=== PATIENT | female | born 1995 | race Caucasian/White ===

== ENCOUNTER 2019-12-05 03:05 | Inpatient (IN) | payer MEDICAID, SELFPAY ==
[2019-12-05] VITALS (7 sets, daily range): BP systolic 108–135; BP diastolic 68–83; PULSE 73–93; RESP 16–24; TEMP 36.6–37; O2SAT 96–97; BMI 37.8
[2019-12-05 03:36] LABS: Basophils # 0.1 10^3/uL (0.0-0.1); Basophils % 0.4 %; Eosinophils # 0.1 10^3/uL (0.0-0.8); Eosinophils % 0.7 %; Hematocrit 31.1 % (37.0-47.0); Hemoglobin 9.3 g/dL (11.5-15.3); Lymphocytes # 2.9 10^3/uL (0.8-4.8); Lymphocytes % 19.6 %; Mean Corpuscular HGB Conc 29.9 g/dL (30.0-36.0); Mean Corpuscular Hemoglobin 21.9 pg (28.0-34.0); Mean Corpuscular Volume 73.3 fL (81-99); Mean Platelet Volume 10.1 fL (7.4-10.4); Monocytes # 1.1 10^3/uL (0.2-0.9); Monocytes % 7.8 %; Neutrophils # 10.4 10^3/uL (1.8-7.7); Neutrophils % 70.7 %; Nucleated Red Blood Cells # 0.1 /100WBC; Nucleated Red Blood Cells % 0.6 %; Platelet Count 488 10^3/cmm (130-400); Red Blood Count 4.24 10^6/uL (4.1-5.3); Red Cell Distribution Width 16.4 % (12.1-15.1); White Blood Count 14.7 10^3/uL (4.0-10.0)
[2019-12-05 03:45] LABS: Amphetamines Screen Urine Negative (Negative); Barbiturates Screen Urine Negative (Negative); Benzodiazepines Screen Urine Negative (Negative); Cocaine Screen Urine Negative (Negative); Opiate Screen Urine Negative (Negative); PCP Screen Urine Negative (Negative); THC Screen Urine Positive (Negative)
--- NOTE | 2019-12-05 04:14 | PM.HP ---
Providers/Chief Complaint Admitting Physician: Fenrando Barksdale MD Primary Care Provider: Ginger Hdez Chief Complaint: LABOR History of Present Illness Ginger Deal is a 24 year old female with 2 previous successful vaginal deliveries and 9 or 10 miscarriages per patient report. Reviewing old records, there is some discrepancy about how many miscarriages she has had. She has apparently had her care in [place] though she reported that she had Dr. Thorne as her primary care provider earlier in her when she arrived at our hospital for some concern she had during this . Otherwise, she describes a relatively unremarkable . Based on old records, it looks like she started receiving care in [facility] September 13. Her labs were remarkable for having O- blood. Her 3-hour glucose screen was negative. 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 She has no active lesions. She states that she does have hypothyroidism sometimes, but did not have any problems during this . The patient began having contractions a few hours prior to delivery. Her membranes were intact upon arrival at the hospital. She was found to be 8 cm dilated and 100% effaced upon arrival at the hospital. Group B strep negative. Review of Systems General: Reports: 10 or more systems reviewed and unremarkable except in HPI and below GI: Reports: heartburn/indigestion Musc: Reports: back pain Skin/Breast: Reports: other (Mild breast pain consistent with ) Medications/Allergies Home Medications Medication Instructions Recorded Confirmed Last Taken Type No Known Home Medications 12/05/19 12/05/19 Unknown History Allergies Allergy/AdvReac Type Severity Reaction Status Date / Time No Known Allergies Allergy Verified 12/05/19 04:27 PFSH Acute PFSH: Statuses (acute, chronic, etc) shown below reflect problem list status as previously entered and may not be historically accurate Social History (Updated 12/05/19 @ 04:40 by Fernando Barksdale MD) Smoking and tobacco status: current every day smoker Alcohol intake: former Substance/Drug Use: former Date of last use: States that she accidentally had a brownie with marijuana in it a month ago Household members: spouse and children Physical Exam Const: COMMON NORMALS: no apparent distress, oriented x3 and well nourished GENERAL APPEARANCE: cooperative HENMT: COMMON NORMALS: normocephalic and moist oral mucous membranes Lymph: LYMPHATIC: no lymphadenopathy noted Chest: COMMONS NORMALS: inspection of chest normal CHEST: Yes symmetrical chest wall rise Resp: COMMON NORMALS: normal respiratory effort and clear to auscultation bilaterally Cardio: COMMON NORMALS: regular rate, regular rhythm and no murmurs GI: COMMON NORMALS: normal to inspection, nondistended, normoactive bowel sounds Extremity: COMMON NORMALS: normal to inspection and no pedal edema Neuro: COMMON NORMALS: moves all extremities Skin: GENERAL SKIN EXAM: no rashes or lesions noted A&P Assessment and plan (1) 39 weeks gestation of : Status: Acute Code(s): Z3A.39 - 39 weeks gestation of (2) Spontaneous vaginal delivery: Status: Acute Code(s): O80 - Encounter for full-term uncomplicated delivery Attestations Medical Necessity Statement*: I anticipate routine care. She should be discharged tomorrow morning if all goes well. 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
[2019-12-05] MEDS: HYDROcodone-acetaminophen 5-325 mg Tablet PO ×4 (04:35→18:40)
[2019-12-05] MEDS: dextrose 5%-lactated ringers 1,000 ML 125 ML IV (04:37)
[2019-12-05] MEDS: oxytocin 30 UNIT/500 ML BAG 600 UNIT IV (04:38)
--- NOTE | 2019-12-05 04:43 | PM.DELIVERY ---
 Delivery Note: Date of delivery: 12/05/19 Pre-Delivery Course: The patient presented to the hospital at 8 cm dilated in active labor. The nurses contacted me has the next person on the obstetric on-call list. Her membranes ruptured shortly thereafter. They obtained her records from [place]. I arrived shortly after they contacted me. I checked her and found her to be a 4 bag which broke during my check. She was found to be complete. She began pushing spontaneously. Delivery: DELIVERY: The patient progressed to complete without difficulty. She delivered a female with a weight of 9 pounds 12 ounces with Apgars of 7, 9. The baby was delivered from the CHARU position. The baby's mouth and nose were suctioned at the site of the perineum. The baby was then completely delivered and placed on the mother's abdomen. The cord was then clamped and cut. There was no nuchal cord. There was no meconium. The placenta and 3 vessel cord were delivered intact shortly thereafter. The perineum and vaginal vault were carefully examined. No lacerations were noted. Both the mother and the baby were in stable condition. 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
--- NOTE | 2019-12-05 07:45 | PC.NURSE ---
Pt and all belongings transferred to room 205. Pt ambulated to room without difficulties. Pt settled and oriented to room, pt denies any wants or needs at this time. Will continue to monitor.
[2019-12-05] MEDS: prenatal vitamin Capsule 1 CAP PO (09:33)
[2019-12-05] MEDS: docusate sodium 100 mg Capsule PO ×2 (09:34→18:43)
--- NOTE | 2019-12-05 09:44 | PC.NURSE ---
Vital Signs Pulse reading from pulse oximeter located on left index finger.
--- NOTE | 2019-12-05 13:52 | PC.NURSE ---
Vital signs Pulse reading from pulse oximeter placed on right index finger.
--- NOTE | 2019-12-05 13:54 | PC.NURSE ---
Pain Patient rolling around in bed complaining of lower abdomen cramping. This nurse set up the kpad machine for patient and educated on use. Prior to placing on patient's abdomen this nurse performed fundal massage, fundus firm with massage, scant bleeding.
[2019-12-05 16:25] LABS: Hematocrit 27.9 % (37.0-47.0); Hemoglobin 8.1 g/dL (11.5-15.3); Mean Corpuscular Hemoglobin 21.7 pg (28.0-34.0); Mean Corpuscular Volume 74.8 fL (81-99); Mean Platelet Volume 10.1 fL (7.4-10.4); Platelet Count 341 10^3/cmm (130-400); Red Blood Count 3.73 10^6/uL (4.1-5.3); Red Cell Distribution Width 16.3 % (12.1-15.1)
[2019-12-06] MEDS: HYDROcodone-acetaminophen 5-325 mg Tablet PO ×2 (00:40→06:48)
[2019-12-06 04:00] VITALS: BP 114/68; PULSE 84; RESP 16; TEMP 36.6
--- NOTE | 2019-12-06 06:54 | PM.DCS ---
Discharge Providers Date of Admission: 12/05/19 03:05 Date of Discharge: 12/10/19 Attending Provider at Admission: Fernando Barksdale MD Attending Provider at Discharge: Fernando Barksdale MD Primary Care Provider: Ginger Hdez Diagnoses at Discharge Discharge Diagnosis (1) 39 weeks gestation of : Status: Acute Problem details: The patient arrived in active labor and delivered her baby shortly after arrival at the hospital. I anticipate routine care. We received her labs from [place] where she received her care. (2) Spontaneous vaginal delivery: Status: Acute Reason for Visit Reason for Visit: Reason For Visit: LABOR Hospital Course Hospital Course: The patient is a multigravida female at 39 weeks estimated gestational age who presented to the hospital in active labor. She received her care in [facility]. Shortly after arrival, she had spontaneous rupture of membranes. She then delivered her baby during the next contraction. Her course has been remarkable for requiring more than the usual amounts of narcotics. Otherwise, she has had appropriate bleeding. She is left the floor multiple times to smoke. I am hopeful that is an indication her pain is adequately controlled. Physical Exam Narrative: EXAM NARRATIVE: The patient is alert and oriented. She has no acute distress. Her heart has a regular rate and rhythm with no murmurs rubs or gallops Her lungs are clear to auscultation bilaterally Her fundus is firm and below the umbilicus Her extremities have trace edema Discharge Data Data Completed and Pending: Labs from last 24 hours 12/05/19 16:18 WBC 11.0 H RBC 3.73 L Hgb 8.1 L Hct 27.9 L MCV 74.8 L MCH 21.7 L MCHC 29.0 L RDW 16.3 H Plt Count 341 MPV 10.1 Vitals: Last Vital Signs Temp 97.8 F 12/06/19 04:00 Pulse 84 12/06/19 04:00 Resp 16 12/06/19 04:00 BP 114/68 12/06/19 04:00 Pulse Ox 96 12/05/19 12:30 Discharge Plan Discharge Patient Disposition: Home, Self-Care Condition: Stable Prescriptions: New ibuprofen 800 mg Tablet 800 mg PO TID Qty: 45 RF: 0 Discharge Orders: Discharge Order (Routine); Ordered 12/06/19 Ordered By: Fernando Barksdale Referrals: Dr. Henry Veloz [Other] - 01/17/20 11:00 am () Discharge Diet: Regular Discharge Activity: Limit activity as instructed Patient Instructions: Perineal Care (GEN), Vaginal Delivery (DC), OB Discharge Report Activity Restrictions/Additional Instructions: *Nothing per vagina x6 weeks *Reference vaginal delivery care notes. Follow up with OB provider in 6 weeks. 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
[2019-12-06] MEDS: docusate sodium 100 mg Capsule PO (08:25)
[2019-12-06] MEDS: prenatal vitamin Capsule 1 CAP PO (08:25)
[2019-12-06 10:24] VITALS: BP 125/81; PULSE 86; RESP 16; TEMP 36.6; O2SAT 97
[2019-12-06] MEDS: pneumococcal (23 valent) SDV 0.5 mL IM ×2 (11:09→11:10)
[2019-12-06 13:02] VITALS: BP 125/81; PULSE 97; RESP 16; TEMP 36.6; O2SAT 97
== END 2019-12-06 11:30 | disposition home or self-care (01) | DRG 806 ==
PROVIDERS: Admitting Provider Family Medicine; Family Provider Nurse Practitioner Family; PCP Nurse Practitioner Family; Visit Provider Family Medicine
DX: O62.3 Precipitate labor (principal); O98.32 Other infections with a predominantly sexual mode of transmission complicating childbirth; Z37.0 Single live birth; A60.00 Herpesviral infection of urogenital system, unspecified; Z3A.39 39 weeks gestation of pregnancy; O99.334 Smoking (tobacco) complicating childbirth; F17.210 Nicotine dependence, cigarettes, uncomplicated
CPT/HCPCS: 36415; 59409; 80307; 85025; 85027; 90732; 99221

== ENCOUNTER → 2020-03-16 18:13 | Outpatient (BNVA) | payer MEDICAID, SELFPAY | PROVIDERS: Family Provider Nurse Practitioner Family; PCP Nurse Practitioner Family; Visit Provider Nurse Practitioner Family | DX: R53.83 Other fatigue (principal); E04.9 Nontoxic goiter, unspecified; R22.1 Localized swelling, mass and lump, neck | CPT/HCPCS: 80053; 82607; 84439; 84443; 84481; 85025; 86308 ==

== ENCOUNTER → 2020-03-24 11:30 | Outpatient (BNVA) | payer MEDICAID, SELFPAY | PROVIDERS: Family Provider Nurse Practitioner Family; PCP Nurse Practitioner Family; Visit Provider Nurse Practitioner Family | DX: E53.8 Deficiency of other specified B group vitamins (principal); E04.9 Nontoxic goiter, unspecified; R53.83 Other fatigue | CPT/HCPCS: 82746; 83090; 83921 ==

== ENCOUNTER → 2020-04-17 13:04 | Outpatient (BNVA) | payer MEDICAID, SELFPAY | PROVIDERS: Family Provider Nurse Practitioner Family; PCP Nurse Practitioner Family; Visit Provider Nurse Practitioner Family | DX: M25.511 Pain in right shoulder (principal) | CPT/HCPCS: 73030 ==

== ENCOUNTER 2021-11-14 10:37 | Outpatient (CLI) | payer MEDICAID, SELFPAY ==
[2021-11-14 11:05] VITALS: BMI 24.0
[2021-11-14 11:08] VITALS: BP 112/61; PULSE 75; RESP 21; TEMP 36.3; O2SAT 98
[2021-11-14 11:43] VITALS: BP 114/70; PULSE 52; RESP 19; TEMP 36.8; O2SAT 99
[2021-11-14 12:46] VITALS: BP 105/65; PULSE 65; RESP 19; TEMP 36.7; O2SAT 98
== END 2021-11-14 10:38 | disposition home or self-care (01) ==
PROVIDERS: PCP Nurse Practitioner Family; Visit Provider Nurse Practitioner Family
DX: U07.1 COVID-19 (principal)
CPT/HCPCS: 96365

== ENCOUNTER → 2021-11-28 11:20 | Outpatient (BNVA) | payer MEDICAID, SELFPAY | PROVIDERS: PCP Nurse Practitioner Family; Visit Provider Nurse Practitioner Family | DX: M25.511 Pain in right shoulder (principal); E53.8 Deficiency of other specified B group vitamins; E03.9 Hypothyroidism, unspecified; R53.83 Other fatigue; G43.909 Migraine, unspecified, not intractable, without status migrainosus; E04.9 Nontoxic goiter, unspecified | CPT/HCPCS: 73030; 80053; 80061; 82306; 82607; 82746; 84443 ==

== ENCOUNTER → 2022-11-27 09:22 | Outpatient (BNVA) | payer MEDICAID, SELFPAY | PROVIDERS: PCP Nurse Practitioner Family; Visit Provider Nurse Practitioner Family | DX: R50.9 Fever, unspecified (principal); J32.9 Chronic sinusitis, unspecified | CPT/HCPCS: 87071; 87400; 87880 ==

== ENCOUNTER → 2022-12-11 11:28 | Outpatient (BNVA) | payer MEDICAID, SELFPAY | PROVIDERS: PCP Nurse Practitioner Family; Visit Provider Nurse Practitioner Family | DX: E78.00 Pure hypercholesterolemia, unspecified (principal); E03.9 Hypothyroidism, unspecified; E55.9 Vitamin D deficiency, unspecified; R05.9 Cough, unspecified; J32.9 Chronic sinusitis, unspecified | CPT/HCPCS: 80053; 80061; 84443 ==

== ENCOUNTER 2023-02-25 13:27 | Outpatient (CLI) | payer MEDICAID, SELFPAY ==
--- NOTE | 2023-02-25 13:34 | XRR_ITS ---
PROCEDURE INFORMATION: Exam: XR Right Foot Exam date and time: 02/25/2023 1:52 PM Age: 27 years old Clinical indication: Pain and injury or trauma; Blunt trauma; Foot; Right; Injury details: HX of fracture, reinjured 4 days ago kicked cabinet; Additional info: M79.674 - pain in right toe(s) TECHNIQUE: Imaging protocol: Radiologic exam of the right foot. Views: 3 or more views. COMPARISON: No relevant prior studies available. FINDINGS: Bones/joints: Negative for acute bony abnormality Soft tissues: Normal. XR/XR foot RT min 3V* [id number] IMPRESSION: No acute findings.
== END 2023-02-25 13:28 | disposition home or self-care (01) ==
PROVIDERS: PCP Nurse Practitioner Family; Visit Provider Nurse Practitioner Family
DX: M79.674 Pain in right toe(s) (principal)
CPT/HCPCS: 73630

== ENCOUNTER → 2023-03-19 08:55 | Outpatient (BNVA) | payer MEDICAID, SELFPAY | PROVIDERS: PCP Nurse Practitioner Family; Visit Provider Nurse Practitioner Family | DX: E66.01 Morbid (severe) obesity due to excess calories (principal); E78.00 Pure hypercholesterolemia, unspecified; E03.9 Hypothyroidism, unspecified | CPT/HCPCS: 80053; 80061; 84443 ==

== ENCOUNTER 2023-06-28 16:52 | Emergency (ER) | payer MEDICAID, SELFPAY ==
[2023-06-28 17:17] VITALS: BP 117/83; PULSE 103; RESP 16; TEMP 36.8; O2SAT 96
--- NOTE | 2023-06-28 18:14 | XRR_ITS ---
PROCEDURE INFORMATION: Exam: XR Right Tibia and Fibula Exam date and time: 06/28/2023 6:36 PM Age: 28 years old Clinical indication: Injury or trauma; Blunt trauma; Lower leg; Right; Injury date: 06/24/2023; Injury details: Fall tues, pain has increased since TECHNIQUE: Imaging protocol: Radiologic exam of the right tibia and fibula. Views: 2 views. COMPARISON: No relevant prior studies available. FINDINGS: Bones/joints: Normal. No acute fracture or dislocation. Soft tissues: Normal. XR/XR tibia fibula RT 2V 60250 IMPRESSION: No acute findings.
--- NOTE | 2023-06-28 19:26 | W.ED.EXTPRO ---
HPI - Extremity Problem General: Chief complaint: Extremity Injury, Lower Stated complaint: Right leg fell through the couch X 4 days ago Time Seen by Provider: 06/28/23 19:16 History of Present Illness: Patient is a 28-year-old female that presents to the emergency after injuring her right lower extremity. Patient states that she was standing on the back of her couch when the frame suddenly gave way and she fell into the frame. This occurred approximately 4 days ago. She was evaluated by her primary care provider and referred here for XR imaging. Patient has a hematoma to the medial aspect of the right lower extremity that is approximately 9 x 5 cm. There is a smaller ecchymotic area on the lateral aspect of the calf is approximately 3 x 3 Patient denies any other extremity injury. She does report some tightness in her low back. She denies striking her head or loss of consciousness Associated symptoms: Deny chest pain, fever(s) or rash Review of Systems General: Reports: 10 or more systems reviewed and unremarkable except in HPI and below Const: Denies: fever(s), chills, change in appetite, change in weight, fatigue or malaise Eyes: Denies: change in vision, eye discomfort, eye discharge or eye redness ENMT: Denies: throat pain, enlarged tonsils, odynophagia, hoarseness, ear or mastoid pain, ear discharge, change in hearing, tinnitus, nasal discharge, nasal congestion, post nasal drip or sinus pain Card: Denies: chest pain, palpitations, irregular heart rhythm, edema, dyspnea on exertion, orthopnea or leg pain with exertion Resp: Denies: dyspnea, productive cough, non-productive cough, wheezing, stridor or chest congestion GI: Denies: abdominal pain, nausea, vomiting, dysphagia, diarrhea, constipation, bloating, GI cramping or hematochezia : Denies: flank pain, difficulty voiding, dysuria, urinary frequency, urinary urgency, urinary hesitancy, oliguria or hematuria Musc: Reports: extremity pain; Denies: neck pain, back pain, joint pain, joint swelling, joint redness, joint warmth or muscle weakness Skin/Breast: Denies: rash, pruritus, erythema, photosensitivity or new lesions Neuro: Denies: headache(s), numbness in extremities, weakness in extremities, sensory changes, lack of coordination, difficulty walking, frequent falls, dizziness, confusion, Slurred speech present, difficulty communicating thoughts, seizure-like activity or involuntary movements Endo: Denies: polyuria, polydipsia or tired all the time Alfred/Lymph: Denies: easy bruising or easy bleeding PFS ED PFSH: Medical History Asthma Hypothyroid Surgical History History of tubal ligation Social History Smoking and tobacco status: current every day smoker e-cigarettes E-Cigarette Details: vaporizer device and with nicotine E-cig/vape details: 5% NICOTINE Alcohol intake: former Substance/Drug Use: former Date of last use: States that she accidentally had a brownie with marijuana in it a month ago Household members: spouse and children Physical Exam Const: COMMON NORMALS: no acute distress, patient oriented x3 and alert GENERAL APPEARANCE: cooperative ORIENTATION/CONSCIOUSNESS: Yes awake, Yes oriented to person, Yes oriented to place and Yes oriented to time HENMT: COMMON NORMALS: normocephalic and atraumatic HEAD & SCALP: normocephalic and atraumatic FACE & SINUS: normal facial exam MOUTH: Normal oral and palatal mucosa present THROAT: posterior oropharynx normal Eye: COMMON NORMALS: Equal, round and reactive pupils present, EOMs intact bilaterally, conjunctivae normal and no scleral icterus GENERAL EYE: appearance normal, both eyes and all related structures ALIGNMENT: Yes alignment normal PERIORBITAL: periorbital findings normal CONJUNCTIVA: Yes conjunctivae normal PUPIL: Yes Equal, round and reactive pupils present Neck/C-Spine: COMMON NORMALS: full ROM GENERAL: Yes normal visual inspection Lymph: LYMPHATIC: no lymphadenopathy noted Chest: COMMONS NORMALS: normal inspection of the chest Breast/axilla inspection: Yes no chest deformity, asymmetry, normal contours, no nodules, masses, tenderness Resp: COMMON NORMALS: normal respiratory effort, No retractions, No use of accessory muscles and clear to auscultation bilaterally EFFORT & INSPECTION: Yes able to speak in complete sentences and Yes symmetric chest movement AUSCULTATION: clear to auscultation bilaterally Cardio: COMMON NORMALS: regular rate, regular rhythm and Peripheral pulses 2+ throughout RATE: regular rate RHYTHM: regular rhythm PERIPHERAL PULSES: Peripheral pulses 2+ throughout GI: COMMON NORMALS: Normal to inspection, nondistended, normoactive bowel sounds present, Soft to palpation, non-tender and No hepatosplenomegaly present INSPECTION: Yes normal to inspection AUSCULTATION: Yes normoactive bowel sounds PALPATION: Yes Soft to palpation and Yes No hepatosplenomegaly present RECTAL EXAM: deferred Back/Pelvis: OTHER: Paraspinous muscle tenderness to back. There is no radiation of pain Patient denies numbness tingling in extremity Extremity: NARRATIVE EXTREMITY EXAM: Right lower extremity: Skin is clean dry and intact Ecchymosis to the medial aspect of the calf measuring 5 x 9 cm She has a small area of ecchymosis on lateral aspect of the calf which is 3 x 3 cm It is a yellowing so consistent with a 4-day-old injury. Patient states she has more swelling today. The compartments and skin are compressible Patient is able to flex and extend the knee Patient is able to dorsiflex plantarflex the foot Patient is able to dorsiflex great toe Sensation intact to light touch at medial, lateral, dorsal, plantar surface of the foot and first webspace DP pulses palpable and cap refills less than 3 seconds Neuro: COMMON NORMALS: patient oriented x3 SENSORIUM/ORIENTATION: Yes alert, Yes oriented to person, Yes oriented to place and Yes oriented to time CRANIAL NERVES: Yes CN normal except as noted Psych: COMMON NORMALS: mental status grossly normal, Normal thought process present, cooperative, activity/motor behavior normal, denies homicidal ideation and denies suicidal ideation THOUGHT PROCESS: Normal thought process present Skin: COMMON NORMALS: no rashes or lesions noted, no wounds and turgor normal GENERAL SKIN EXAM: no rashes or lesions noted and turgor normal Course Vital Signs: Vital signs: Vital Signs Temperature 98.2 F 06/28/23 17:17 Pulse Rate 103 H 06/28/23 17:17 Respiratory Rate 16 06/28/23 17:17 Blood Pressure 117/83 06/28/23 17:17 Pulse Oximetry 96 06/28/23 17:17 MDM - Extremity (Nontraumatic) Medical Decision Making Patient arrives 4 days after an injury occurred when she fell through the frame of a couch. She underwent XR imaging of the extremity which reveals no acute findings. She does have a hematoma and evidence of healing injury as the bruise is yellow in nature. Patient does express concerns with increased swelling today. The tissue is compressible and she is able to ambulate without difficulty bearing weight. Patient I talked about strategies to help with pain She is going to discharge home with instructions for hematoma/contusion management and strengthening the core. Patient is to return to the emergency department for new concerning or worsening symptoms Lab Data Radiology Impressions Tibia/Fibula X-Ray 06/28/23 18:14 IMPRESSION: No acute findings. Discharge Plan Discharge Patient Disposition: Home Clinical Impression: Hematoma and contusion Condition: Stable Prescriptions: New ketorolac 10 mg tablet 10 mg PO Q8H PRN (Reason: pain) 5 Days Qty: 15 0RF No Action ibuprofen 800 mg tablet 800 mg PO Q8H Qty: 28 0RF atomoxetine [Strattera] 40 mg capsule 40 mg PO DAILY quetiapine [Seroquel] 50 mg tablet 150 mg PO BEDTIME hydrocodone-acetaminophen 5-325 mg tablet 1 tab PO TID PRN (Reason: pain) 2 Days Qty: 6 0RF Victoza 2-Heath 0.6 mg/0.1 mL (18 mg/3 mL) pen injector See Rx Instructions SUBCUT .COMPLEX Qty: 6 0RF Rx Instructions: inject 0.6mg subcutaneously once daily x 7 days; then 1.2mg daily 7 days, then 1.8mg/day 7days, then 2.4 daily (DME) pen needle, diabetic [Easy Comfort Pen [place]] 32 gauge x 5/32 needle See Rx Instructions .Route Qty: 100 0RF Rx Instructions: As directed simvastatin 20 mg tablet 20 mg PO .QHS 90 Days Qty: 90 1RF levothyroxine 25 mcg tablet See Rx Instructions .ROUTE .COMPLEX Qty: 30 3RF Dose Instruction: TAKE ONE TABLET BY MOUTH ONCE DAILY Rx Instructions: TAKE ONE TABLET BY MOUTH ONCE DAILY sumatriptan succinate 100 mg tablet See Rx Instructions .ROUTE .COMPLEX Qty: 9 2RF Dose Instruction: take 1 tablet BY MOUTH EVERY 2 HOURS NEEDED FOR migrain HEADACHE, DO not exceed 2 doses in 24 hours Rx Instructions: take 1 tablet BY MOUTH EVERY 2 HOURS NEEDED FOR migrain HEADACHE, DO not exceed 2 doses in 24 hours Discharge Orders: Discharge ED (Routine); Ordered 06/28/23 Ordered By: Rissa Becerril Referrals: Navya Esparza FNP [Primary Care Provider] - Discharge Diet: Advance as tolerated Discharge Activity: Resume usual activity Patient Instructions: Contusion in Adults (ED), Hematoma (ED), Core Strengthening Exercises (ED), Pain Management Activity Restrictions/Additional Instructions: Medications that you may try: Lidocaine patch [employer] Voltaren RICE?rest, ice, compression, elevation I think you are reaching the peak of swelling. This should start to taper. Please return to the emergency department for new concerning or worsening symptoms. Coding Level of Care Code ED Ear Mold Laboratory Technician for Mata Lemus
== END 2023-06-28 19:37 | disposition home or self-care (01) ==
PROVIDERS: Emergency Provider Nurse Practitioner; PCP Nurse Practitioner Family
DX: S80.11XA Contusion of right lower leg, initial encounter (principal); F17.290 Nicotine dependence, other tobacco product, uncomplicated; W08.XXXA Fall from other furniture, initial encounter
CPT/HCPCS: 73590; 99283

== ENCOUNTER → 2023-08-19 11:36 | Outpatient (BNVA) | payer MEDICAID, SELFPAY | PROVIDERS: PCP Nurse Practitioner Family; Visit Provider Nurse Practitioner Family | DX: E78.00 Pure hypercholesterolemia, unspecified (principal); M10.9 Gout, unspecified; E03.9 Hypothyroidism, unspecified; E78.5 Hyperlipidemia, unspecified | CPT/HCPCS: 80053; 80061; 84443; 84550; 85025 ==

== ENCOUNTER → 2024-01-05 15:20 | Outpatient (BNVA) | payer MEDICAID, SELFPAY | PROVIDERS: PCP Nurse Practitioner Family; Visit Provider Nurse Practitioner Family | DX: E78.5 Hyperlipidemia, unspecified (principal); E03.9 Hypothyroidism, unspecified; E55.9 Vitamin D deficiency, unspecified; M10.9 Gout, unspecified; R73.9 Hyperglycemia, unspecified; E53.8 Deficiency of other specified B group vitamins; E78.00 Pure hypercholesterolemia, unspecified | CPT/HCPCS: 80053; 80061; 82306; 82607; 83036; 84439; 84443; 84550; 85025 ==

== ENCOUNTER → 2024-07-22 13:02 | Outpatient (BNVA) | payer MEDICAID, SELFPAY | PROVIDERS: PCP Nurse Practitioner Family; Visit Provider Family Medicine | DX: E78.5 Hyperlipidemia, unspecified (principal); E03.9 Hypothyroidism, unspecified; E55.9 Vitamin D deficiency, unspecified | CPT/HCPCS: 80053; 80061; 82306; 84443; 85025 ==

== ENCOUNTER → 2025-06-13 14:10 | Outpatient (BNVA) | payer MEDICAID, SELFPAY | PROVIDERS: PCP Nurse Practitioner Family; Visit Provider Nurse Practitioner Family | DX: E78.5 Hyperlipidemia, unspecified (principal); E55.9 Vitamin D deficiency, unspecified; E66.9 Obesity, unspecified | CPT/HCPCS: 80053; 80061; 82306; 82607; 83036; 84443; 85025 ==

== ENCOUNTER 2025-08-01 09:49 | Emergency (ER) | payer MEDICAID, SELFPAY ==
--- OUTSIDE RECORDS SUMMARY | 2024-09-07 11:00 | XMS_ITS ---
Author Organization [facility] Address [address] [place] [address] Care Team Providers Care Thread Checker Name Role Phone Christopher Reyes [phone] REASON FOR VISIT PHENTERMINE Encounters Encounter Location Date Provider Diagnosis [facility] [address] [place] [id number] 09/07/2024 Christopher Reyes Plan Of Treatment No Information Progress Notes * Ginger DEAL ADOB:[birth year] (30 yo F)Acc No.[id number]:09/07/2024 Progress Notes Patient: Ginger Sims Provider: Ronak Reyes MD :1995 A ge:29 Y S ex:Female Date:09/07/2024 Address[place] [id number] Subjective: * Chief Complaints: * P HENTERMINE * Electronic signature of Bria Reyes MD on 08/01/2025 at 09:54 AM CDT Sign off status: Pending * Provider: Ronak Reyes MD Date: 1 Generated for Jovanii marta/Damian/eTransmitting on: 0 08/01/2025 09:54 AM CDT
--- OUTSIDE RECORDS SUMMARY | 2025-08-01 09:54 | XMS_ITS | Patient Health Record ---
Author Organization [facility] Address [address] [place] [address] Care Team Providers Care Tavern Car Attendant Name Role Phone Christopher Reyes Unavailable Reason For Referral No Information Immunizations Vaccine Route Administration Date Status Comme nts Influenza (whole), CPT 51430 Inactive Unknown 09/13/2019 Administered Influenza (whole), CPT 33359 Inactive Unknown 03/16/2018 Administered Social History Tobacco Use: Social History Observation Description Date Details (start date - stop date) Former Smoker NA - NA Social History Depression Screening Social Info Question Answer Notes PHQ-9 Little interest or pleasure in doing thin gs Not at all Feeling down, depressed, or hopeless Not at all Trouble falling or staying asleep, or sleeping t oo much Not at all Feeling tired or having little energy Not at all Poor appetite or overeating Not at all Feeling bad about yourself, or that you are a failure, or have let yourself or your family down Not at all Trouble concentrating on thi ngs, such as reading the newspaper or watching television Not at all Moving or speaking so slowly that other people could have noticed. Or the opposite ? being so fidgety or restless that you have been moving around a lot more than usual Not at all Thoughts that you would be b turner off , or of hurting yourself in some way Not at all Total Score 0 Drugs/Alcohol: Social Info Question Answer Notes Alcohol Screen (Audit-C) Did you have a drink containing alcohol in the past year? No Points 0 Interpretation Negative Drugs Have you used drugs other than those for medical reasons in the past 12 months? No Tobacco Use: Social Info Question Answer Notes xTobacco Use/Smoking Are you a former smoker How long has it been since you last smoked? 6-12 months Additional Details Category Social Info Options Details zzMigrated Social History Migrated Social History Smoking Status:Ex-smoker (finding) Problems Problem Type SNOMED Code ICD Code Onset Dates Problem Status W/U Status Risk Notes Problem Normal (19361127) Encounter for supervision of normal , unspecified, third trimester (Z34.93) Active confirm Plan Of Treatment No Information Insurance Providers Payer Name Payer Address Payer Phone Subscriber Number Group Number Insured Name Patient Relationship to Insured Coverage Start Date Coverage End Date [place] [address] [place] [address] [id number] Ginger Deal Self - patient is the insured Medical (General) History Medical History History ICD Code Asthma Thyroid structure Surgical History Surgery Date(Month/Year) Hospitalization History Reason Date(Month/Year) 04/04/2018 05/04/2017
[2025-08-01 09:56] VITALS: BP 138/100; PULSE 87; RESP 16; TEMP 37.2; O2SAT 96
--- NOTE | 2025-08-01 10:03 | W.ED.DENTAL ---
HPI - Dental/Oral General: Chief complaint: Dental/Oral Stated complaint: rt cheek swelling Time Seen by Provider: 08/01/25 09:50 Source: patient Mode of arrival: ambulatory Limitations: no limitations History of Present Illness: 30-year-old female with history of poor dentition states been having right lower dental pain and some swelling swelling for 4 days. She states she been trying to get into a dentist but not able to with her insurance. Rates the pain a 7 out of 10 denies any difficulty swallowing denies any trismus. Associated symptoms: Denies fever(s) Related Data Previous Rx's ?Medication ?Instructions ?Recorded sumatriptan succinate 100 mg tablet See Rx Instructions .Route 07/22/24 .COMPLEX #9 tabs trazodone 50 mg tablet 50 mg PO .HS PRN insomnia #30 tabs 06/13/25 simvastatin 80 mg tablet 80 mg PO DAILY #30 tabs 06/17/25 cholecalciferol (vitamin D3) 1,250 50,000 unit PO .weekly #4 caps 06/27/25 mcg (50,000 unit) capsule levothyroxine 25 mcg capsule 25 mcg PO DAILY #30 caps 06/27/25 semaglutide 0.25 mg or 0.5 mg (2 0.5 mg (0.736 mL) SUBCUT .ONCE 07/28/25 mg/3 mL) subcutaneous pen injector WEEKLY #3 mL (Ozempic) cephalexin 500 mg capsule 500 mg PO TID 7 days #21 caps 08/01/25 hydrocodone 5 mg-acetaminophen 325 1 tab PO Q6H PRN pain #6 tabs 08/01/25 mg tablet naproxen 500 mg tablet (Naprosyn) 500 mg PO BID PRN pain #20 tabs 08/01/25 Allergies Allergy/AdvReac Type Severity Reaction Status Date / Time ondansetron (From Zofran) Allergy Severe ADR-Vomitin Verified 06/13/25 13:25 g bupropion (From Wellbutrin) Allergy ADR-Gastrointestinal Verified 06/13/25 13:25 Upset escitalopram (From Lexapro) Allergy ADR-Agitate Verified 06/13/25 13:31 d Review of Systems Const: Denies: fever(s), chills, body aches or change in appetite ENMT: Reports: dental pain; Denies: throat pain Card: Denies: chest pain Resp: Denies: dyspnea GI: Denies: abdominal pain, nausea, vomiting or diarrhea Musc: Denies: neck pain or back pain Skin/Breast: Denies: rash Neuro: Denies: headache(s) PFS ED PFSH: Medical History Asthma Hypothyroid Surgical History History of tubal ligation Social History Smoking and tobacco/nicotine status: current every day tobacco/nicotine user e-cigarettes E-Cigarette Details: vaporizer device and with nicotine E-cig/vape details: 5% NICOTINE Second hand smoke exposure: No Alcohol intake: former Substance/Drug Use: former Date of last use: States that she accidentally had a brownie with marijuana in it a month ago Adopted: No Caregiver/support person: No Lives independently: Yes Household members: spouse and children Housing: House Marital status: Number of children: 3 service: No Current occupational status: unemployed Pets and animals: Yes Do you think of yourself as: Straight/Heterosexual Current gender identity: Female Physical Exam Const: COMMON NORMALS: no acute distress, patient oriented x3 and healthy appearing HENMT: COMMON NORMALS: normocephalic and atraumatic HEAD & SCALP: normocephalic and atraumatic OTHER: Poor dentition does have tenderness along with erythema right lower molar no obvious abscess no trismus Eye: COMMON NORMALS: conjunctivae normal CONJUNCTIVA: Yes conjunctivae normal Neck/C-Spine: COMMON NORMALS: full ROM and supple Chest: COMMONS NORMALS: normal inspection of the chest Resp: COMMON NORMALS: normal respiratory effort Cardio: COMMON NORMALS: regular rate RATE: regular rate Extremity: COMMON NORMALS: normal to inspection and full ROM Neuro: COMMON NORMALS: patient oriented x3, moves all extremities and no focal motor deficits Psych: COMMON NORMALS: mental status grossly normal, Normal thought process present and cooperative THOUGHT PROCESS: Normal thought process present Skin: COMMON NORMALS: no rashes or lesions noted and no wounds GENERAL SKIN EXAM: no rashes or lesions noted Course Vital Signs: Vital signs: Vital Signs Temperature 98.9 F 08/01/25 09:56 Pulse Rate 87 08/01/25 09:56 Respiratory Rate 16 08/01/25 09:56 Blood Pressure 138/100 08/01/25 09:56 Pulse Oximetry 96 08/01/25 09:56 Oxygen Delivery Me thod Room Air 08/01/25 09:56 MDM - Dental/Oral Medical Decision Making Patient presents for dental pain no abscess no trismus we will start antibiotics pain meds she has to follow-up with PCP and a dentist return if worsening Medical Records I reviewed the patient's medical records. No radiology studies performed this visit Discharge Plan Discharge Patient Disposition: Home Clinical Impression: Toothache, Dental caries Condition: Stable Prescriptions: New hydrocodone-acetaminophen 5-325 mg tablet 1 tab PO Q6H PRN (Reason: pain) Qty: 6 0RF cephalexin 500 mg capsule 500 mg PO TID 7 Days Qty: 21 0RF naproxen [Naprosyn] 500 mg tablet 500 mg PO BID PRN (Reason: pain) Qty: 20 0RF No Action sumatriptan succinate 100 mg tablet See Rx Instructions .ROUTE .COMPLEX Qty: 9 2RF Dose Instruction: take 1 tablet BY MOUTH EVERY 2 HOURS NEEDED FOR migrain HEADACHE, DO not exceed 2 doses in 24 hours Rx Instructions: take 1 tablet BY MOUTH EVERY 2 HOURS NEEDED FOR migrain HEADACHE, DO not exceed 2 doses in 24 hours trazodone 50 mg tablet 50 mg PO .HS PRN (Reason: insomnia) Qty: 30 0RF simvastatin 80 mg tablet 80 mg PO DAILY Qty: 30 0RF cholecalciferol (vitamin D3) 1,250 mcg (50,000 unit) capsule 50,000 unit PO .weekly Qty: 4 2RF levothyroxine 25 mcg capsule 25 mcg PO DAILY Qty: 30 2RF Ozempic 0.25 mg or 0.5 mg (2 mg/3 mL) pen injector 0.5 mg SUBCUT .ONCE WEEKLY Qty: 3 0RF Discharge Orders: Discharge ED (Routine); Ordered 08/01/25 Ordered By: Mame Whitlock Referrals: Navya Esparza FNP [Primary Care Provider, Family Practice] Discharge Diet: Advance as tolerated Discharge Activity: Resume usual activity Patient Instructions: Toothache (ED) Print Language: Wallisian Coding Level of Care Code ED Supervisor [employer] for Mata Lemus
[2025-08-01] MEDS: HYDROcodone-acetaminophen 5-325 mg Tablet 1 TAB PO (10:15)
== END 2025-08-01 10:16 | disposition home or self-care (01) ==
PROVIDERS: Emergency Provider Emergency Medicine; PCP Nurse Practitioner Family
DX: K08.89 Other specified disorders of teeth and supporting structures (principal); K02.9 Dental caries, unspecified; F17.290 Nicotine dependence, other tobacco product, uncomplicated
CPT/HCPCS: 99283; J9999

== ENCOUNTER → 2025-08-22 12:34 | Outpatient (BNVA) | payer MEDICAID, SELFPAY | PROVIDERS: PCP Nurse Practitioner Family; Visit Provider Nurse Practitioner Family | DX: E03.9 Hypothyroidism, unspecified (principal) | CPT/HCPCS: 84439; 84443 ==

== ENCOUNTER → 2025-10-18 11:29 | Outpatient (BNVA) | payer MEDICAID, SELFPAY | PROVIDERS: PCP Nurse Practitioner Family; Visit Provider Nurse Practitioner Family | DX: M25.511 Pain in right shoulder (principal); E55.9 Vitamin D deficiency, unspecified; E78.5 Hyperlipidemia, unspecified; E03.9 Hypothyroidism, unspecified | CPT/HCPCS: 73030; 80053; 80061; 82306; 84439; 84443; 85025 ==